=== PATIENT | female | born 1975 | race Caucasian/White ===

== ENCOUNTER 2021-10-14 08:14 | Day surgery (SDC) | payer OTHER ==
[~2021-10-14] VITALS: Ht 167.6 cm; Wt 62.3 kg
[~2021-10-14 08:14] MED LIST: MULTIPLE VITAMI1 CAP PO; VITAMIN D 400400 IU PO; XANAX 0.5MG0.5 MG PO
[2021-10-14 08:46] VITALS: BP 112/68; PULSE 66; TEMP 97.6
[2021-10-14 10:20] VITALS: BP 95/61; PULSE 60; TEMP 97
--- NOTE | 2021-10-14 10:29 | NUR ---
1020 - PT arrived from procedure and was settled by Suzanne THOMPSON. Verbal room report then obtained. PT is drowsy but oriented. Chocolate pudding and ice water provided per request. PT oriented to room and call daigle, within reach. PT denies nausea and pain; no vomiting. Warm blankets provided. Non-slip socks remain on.
[2021-10-14 10:35] VITALS: BP 91/68; PULSE 60
--- NOTE | 2021-10-14 10:35 | NUR ---
VSS. PT is eating her pudding and continues to drink. PT continues to deny pain and nausea. NO vomiting. Call daigle remains within reach if needed.
--- NOTE | 2021-10-14 10:39 | NUR ---
Ride was contacted per pt request; PT states it is AOK to bring visitor back to room when they arrive.
[2021-10-14 10:50] VITALS: BP 99/66; PULSE 60
--- NOTE | 2021-10-14 10:50 | NUR ---
VSS. PT continues to deny nausea and pain. PT expressed desire to be discharged to rest at home. IV discontinued. Catheter tip intact. Pressure bandage applied. NO redness or swelling noted. DC instructions and educational material reviewed with the PT who verbalized understanding and signed the related paperwork. Questions answered to PT satisfaction. PT denied needing assistance changing into personal clothes. Call daigle remains within reach. Awaiting DR to speak with PT.
--- NOTE | 2021-10-14 11:10 | NUR ---
is finished speaking with PT.
--- NOTE | 2021-10-14 11:15 | NUR ---
PT dismissed from endo via wheelchair to the PT entrence by Ewa THOMPSON. PT has DC packet and personal belongings and was transferred into the care of her friend, who is driving private truck.
== END 2021-10-14 11:15 | disposition home or self-care (01) ==
LOC: SDCO 08:14
DX: Z12.11 Encounter for screening for malignant neoplasm of colon (principal); D12.3 Benign neoplasm of transverse colon; Z80.0 Family history of malignant neoplasm of digestive organs
CPT/HCPCS: J2704; J7120